=== PATIENT | male | born 1945 | race Caucasian/White ===

== ENCOUNTER → 2016-10-20 | Outpatient (CLI) | payer OTHER ==
[~2016-10-20] MED LIST: ASPI-113 PO; LISI-725 PO; MULT-506 PO; PSYLLIUM HUSKS; SIMV20TA2 PO
== END | disposition home or self-care (01) ==
LOC: C.LAB 07:33
PROVIDERS: ATTEND Family Medicine
DX: C61 Malignant neoplasm of prostate (principal)

== ENCOUNTER → 2017-03-25 | Outpatient (CLI) | payer OTHER ==
[~2017-03-25] MED LIST changes: -MULT-506 PO
[2017-03-25 10:33] LABS: URINE APPEARANCE CLEAR (CLEAR); URINE BILIRUBIN NEG (NEG); URINE COLOR YELLOW; URINE NITRITE NEG (NEG); URINE PH 6.5 (4.5-7.5); URINE SPECIFIC GRAVITY 1.016 (1.000-1.030); UROBILINOGEN NEG (NEG); ZZUR CULT IF INDIC CLEAN CATCH NO
[2017-03-25 10:41] LABS: MANUAL MICROSCOPIC REQUIRED? NO; REVIEW REQ? NO
== END | disposition home or self-care (01) ==
LOC: C.LAB 06:54
PROVIDERS: ATTEND Radiology Radiation Oncology
DX: R30.0 Dysuria (principal); C61 Malignant neoplasm of prostate

== ENCOUNTER → 2017-04-07 | Outpatient (CLI) | payer OTHER | END | disposition home or self-care (01) | LOC: C.LAB 07:56 | PROVIDERS: ATTEND Physician Assistant Medical | DX: C61 Malignant neoplasm of prostate (principal) ==

== ENCOUNTER → 2017-04-12 | Outpatient (CLI) | payer OTHER ==
[2017-04-12 14:41] VITALS: BP 123/71; PULSE 68; TEMP 36.4; O2SAT 95
--- NOTE | 2017-04-12 15:34 | Radiation Oncology Follow-Up ---
Radiation Oncology Follow-Up Date of Visit Apr 12, 2017. (Shantel Ch PA-C) Reason For Visit One-month follow-up and cancer survivorship care plan (Shantel Ch PA-C) Radiation Completion Date 03/03/17 (Shantel Ch PA-C) Diagnosis (1) Prostate cancer Status: Resolved Onset Date: 11/06/2010 Location: both lobes of the prostate Histology Subtype: adenocarcinoma Stage: ll (B) Permanent Comment: Rising PSA, pretreatment PSA 3.62 Status post ultrasound-guided biopsy 11/06/2010 revealing adenocarcinoma -Cutler 3+3 Status post robotic-assisted laparoscopic prostatectomy with lymph node dissection 06/22/2011 -Cutler 3+3 -Stage pT2c pN0 Post prostatectomy rising PSA PSA 10/20/2016 0.539 Status Post completion of radiation therapy 03/03/2017 Last Edited By: Shantel Ch on March 15, 2017 15:07 (Shantel Ch PA-C) History of Present Illness Mr. Farr is a 70-year-old gentleman who initially presented with a PSA of 3.45 on 10/02/2010. The patient underwent a prostate biopsy on 11/06/[address] Ellsworth which revealed prostate adenocarcinoma that was Ari 3+3 involving 3/20 cores. The patient ultimately decided to undergo a radical prostatectomy at [facility] (Dr. Plummer) on 06/22/2011. The pathology revealed prostate adenocarcinoma with Ari 3+3 involving both lobes (pT2c). The surgical margins were negative and there is no evidence of extracapsular extension or seminal vesicle invasion. 0/16 lymph nodes were involved with prostate cancer. The patient did have an undetectable PSA in July 2011 that was less than 0.13. More recently, the patient's PSA has been rising and was 0.282 on 04/04/2015 and was most recently 0.539 on 2016. The patient has been followed by Dr. Mckinnon from urology and Dr. Rascon from radiation oncology who initially recommended surveillance with repeat PSAs. He did have a CT abdomen and pelvis and bone scan on 06/27/2015 which revealed no evidence of distant metastatic disease or pelvic lymphadenopathy. After the most recent PSA which was 0.539 on 10/20/2016, Dr. Rascon and Dr. Mckinnon recommended consideration of salvage radiation therapy. We are now seeing the patient in consultation discussed the role of salvage radiation therapy. Status post completion of salvage radiation therapy 03/03/2017. He received 6840 cGy (Shantel Ch PA-C) Interim History He is been doing well over the past month. Denies any difficulty with urination. He gave an AUA score of 1.5 he completed and expanded prostate cancer index composite for clinical practice and gave a score of 5 of 12 and urinary incontinence symptoms. He gave a score of 2 of 12 urinary irritation symptoms. He gave a score of 0 12 and bowel symptoms. He gave a score of 3 of 12 sexual symptoms. He gave a score of 0 of 12 and hormonal vitality symptoms. His total was 10 of 60. He had a PSA drawn on 04/07/2017 in preparation for this visit. The value was 0.233. This is down from 0.539 on 10/20/2016. He is feeling well in general. He denies any difficulty with fatigue. (Shantel Ch PA-C) Allergies Coded Allergies: No Known Allergies (Unverified Allergy, Unknown, 04/07/05) Home Medications Scheduled Aspirin Enteric Coated (Ecotrin Or Generic), 325 MG PO DAILY Lisinopril (Zestril), 20 MG PO DAILY Simvastatin (Zocor), 20 MG PO QPM [psyllium husks], 1 TSP DAILY Review of Systems Gastrointestinal: Symptoms: WNL GI Comments: Takes metamucil daily Oral: Symptoms: No Problems Respiratory: Symptoms: WNL Urinary: Comments: Often able to go longer than 2Hrs betw'n voids;2 voids/night; Skin: Symptoms: No Problems Additional Notes: He completed a distress management report and answered "no" to all questions. (Shantel Ch PA-C) Physical Exam Vital Signs Date Time Temp Pulse Resp B/P (MAP) Pulse Ox O2 Delivery O2 Flow Rate FiO2 04/12/17 14:41 36.4 68 16 123/71 95 Fatigue: None General Appearance: no apparent distress Eyes: normal inspection, EOMI ENT: normal ENT inspection, hearing grossly normal Neck: no adenopathy, thyroid normal Respiratory/Chest: lungs clear, no respiratory distress, no accessory muscle use Cardiovascular: regular rate, rhythm, no gallop, no murmur Extremities: no pedal edema Neurologic/Psychiatric: no motor/sensory deficits, alert, normal mood/affect Skin: warm/dry (Shantel Ch PA-C) Laboratory Studies Test 03/25/17 06:59 04/07/17 08:08 Urine Color YELLOW Urine Appearance CLEAR (CLEAR) Urine pH 6.5 (4.5-7.5) Urine Specific [place] 1.016 (1.000-1.030) Urine Protein NEG (NEG) Urine Glucose (UA) NEG (NEG) Urine Ketones NEG (NEG) Urine Occult Blood NEG (NEG) Urine Nitrite NEG (NEG) Urine Bilirubin NEG (NEG) Urine Urobilinogen NEG (NEG) Urine Leukocyte Esterase NEG (NEG) Prostate Specific Antigen 0.233 ng/ml (0.000-4.000) (Shantel Ch PA-C) Additional Studies PSA as reviewed above. (Shantel Ch PA-C) Assessment & Plan Plan: Patient is also seen today by Dr. Correa. He'll continue regular follow- up with his urologist and primary care physician. We asked him to return to our office in 9 months. He may call if she has any questions or concerns in the interim. Today he was given a cancer survivorship care plan. (Shantel Ch PA-C) I agree with note created by Shantel Ch PA-C. I reviewed the patient's chart and information with her. I have examined and evaluated the patient. I reviewed relevant clinical information and answered the patient's and/or family' s questions. (Veeral. Correa MD) Total Time In Follow-Up I spent 15 minutes speaking to the patient and performing examination. I spent 20 minutes reviewing information, preparing the survivorship document and completing this note. (Shantel Ch PA-C) I spent 15 minutes examining and counseling the patient. (Veeral. Correa MD) Copy To Darion Rosales D.O.; Cindy Mckinnon MD
== END | disposition home or self-care (01) ==
LOC: C.ONC 14:35
PROVIDERS: ATTEND Physician Assistant Medical
DX: Z08 Encounter for follow-up examination after completed treatment for malignant neoplasm (principal); Z92.3 Personal history of irradiation; Z85.46 Personal history of malignant neoplasm of prostate

== ENCOUNTER → 2017-05-31 | Outpatient (CLI) | payer OTHER | END | disposition home or self-care (01) | LOC: C.LAB 07:54 | PROVIDERS: ATTEND Family Medicine | DX: C61 Malignant neoplasm of prostate (principal) ==